=== PATIENT | male | born 1995 | race Hispanic/Latino ===

== ENCOUNTER 2017-12-08 20:17 | Emergency (ER) | payer OTHER, SELFPAY ==
[2017-12-08 21:48] LABS: #Basophils 0.1 thou/uL (0.0-0.2); #Eosinphils 0.2 thou/uL (0.0-0.7); #Lymphocytes 3.8 thou/uL (1.20-3.40); #Neutrophils 5.3 thou/uL (1.40-6.50); %Basophils 0.9 % (0.0-1.0); %Eosinophils 2.3 % (0.0-10.0); %Lymphocytes 36.7 % (21.0-51.0); %Monocytes 9.4 % (0.0-10.0); %Neutrophils 50.8 % (42.0-75.0); Hemoglobin 18.2 g/dL (14.0-18.0); Mean Corpuscular HGB CONC 35.5 g/dL (32.0-36.0); Mean Corpuscular Hemoglobin 31.1 pg (27.0-31.0); Mean Corpuscular Volume 87.6 fl (80.0-94.0); Platelet Count 277 thou/uL (130-400); RBC Distribution Width 12.1 % (11.5-14.5); Red Blood Cell (RBC) Count 5.83 mill/uL (4.70-6.10); White Blood Cell (WBC) Count 10.4 thou/uL (4.8-10.8)
[2017-12-08 21:56] LABS: Bilirubin Small (Negative); Blood, Urine Negative (Negative); Clarity CLEAR (Clear); Glucose, Urine (Dipstick) Negative (Negative); Leukocyte Negative (Negative); Nitrite Negative (Negative); Protein, Urine (Dipstick) 30 mg/dL (Neg-Trace); Specific Gravity, Urine 1.029 (1.002-1.036); pH, Urine 6.5 (5.0-9.0)
[2017-12-08 21:57] LABS: Bacteria/HPF None Seen HPF (None Seen); Hyaline Casts/LPF 0-3 HYALINE CAST LPF (0-3 Hyaline); Pathc Cast-AUWi Flag 0.29 (0-2.49); RBC/HPF 0-3 HPF (0-3); Squamous Epithelial 0-3 HPF (0-3); WBC/HPF 0-3 HPF (0-3)
--- NOTE | 2017-12-08 22:03 | RAD ---
TWO VIEWS CHEST: 12/08/2017 PROVIDED CLINICAL HISTORY: Dyspnea. FINDINGS: The cardiac and mediastinal silhouette are within normal limits. The lungs appear clear. There is n o pleural fluid or pneumothorax apparent. IMPRESSION: No evidence for an acute cardiopulmonary process. POS: JG
[2017-12-08 22:04] LABS: Amphetamine Detected (NotDetected); Barbiturates Screen Not Detected (NotDetected); Benzodiazepine Screen Not Detected (NotDetected); Cocaine Metabolite Screen Detected (NotDetected); Medtox Control Line Valid? VALID (VALID); Medtox Reader # READER 4; Methadone Not Detected (NotDetected); Methamphetamine Detected (NotDetected); Opiate Screen Not Detected (NotDetected); Oxycodone Screen Not Detected (NotDetected); Phencyclidine (PCP) Not Detected (NotDetected); THC/Cannabinoid Screen Detected (NotDetected); Tricyclic Screen Not Detected (NotDetected)
[2017-12-08 22:10] LABS: Acetaminophen Less than 6.0 mcg/mL (10.0-30.0); Alcohol Less than 10 mg/dL (Less than 10); Salicylate Less than 8.0 mg/dL (15.0-30.0)
[2017-12-08 22:12] LABS: ALT (SGPT) 120 U/L (8-55); AST (SGOT) 92 U/L (5-34); Alkaline Phosphatase 101 U/L (40-150); Anion Gap 23 mmol/L (10-20); BUN (Urea Nitrogen) 27 mg/dL (8.9-20.6); Bilirubin, Total 1.5 mg/dL (0.2-1.2); CK (CPK) 86 U/L (30-200); Calc. Creatinine Clearance 0 mL/min (70-130); Calcium 10.4 mg/dL (7.8-10.44); Carbon Dioxide 14 mmol/L (22-29); Chloride 104 mmol/L (98-107); Estimated GFR-MDRD Greater than 90; Globulin 3.6 g/dL (2.4-3.5); Glucose 87 mg/dL (70-105); Lipase 19 U/L (8-78); Potassium 3.7 mmol/L (3.5-5.1); Protein, Total 8.6 g/dL (6.0-8.3); Sodium 137 mmol/L (136-145)
[2017-12-08 22:14] LABS: CKMB 0.3 ng/mL (0-6.6); Troponin I Less than 0.010 ng/mL (< 0.028)
== END 2017-12-08 23:37 | disposition home or self-care (01) ==
LOC: ERS 20:17
DX: R07.89 Other chest pain (principal); F32.9 Major depressive disorder, single episode, unspecified; F41.9 Anxiety disorder, unspecified; F17.210 Nicotine dependence, cigarettes, uncomplicated
CPT/HCPCS: 71046; 80053; 80306; 80307; 81003; 81015; 82550; 82553; 83690; 84484; 85025; 93005; 94760; 96360

== ENCOUNTER 2018-07-03 04:57 | Emergency (ER) | payer OTHER, SELFPAY ==
[2018-07-03] MEDS ORDERED: Lorazepam 2 MG/ML VIAL ONE (05:04)
[2018-07-03 05:28] LABS: #Basophils 0.1 thou/uL (0.0-0.2); #Eosinphils 0.2 thou/uL (0.0-0.7); #Lymphocytes 4.2 thou/uL (1.20-3.40); #Monocytes 0.9 thou/uL (0.11-0.59); #Neutrophils 3.5 thou/uL (1.40-6.50); %Basophils 1.3 % (0.0-1.0); %Eosinophils 2.6 % (0.0-10.0); %Lymphocytes 47.4 % (21.0-51.0); %Monocytes 9.8 % (0.0-10.0); %Neutrophils 38.9 % (42.0-75.0); Hemoglobin 15.1 g/dL (14.0-18.0); Mean Corpuscular HGB CONC 34.1 g/dL (32.0-36.0); Mean Corpuscular Hemoglobin 29.7 pg (27.0-31.0); Mean Corpuscular Volume 87.1 fL (78.0-98.0); Mean Platelet Volume 7.7 fL (7.4-10.4); Platelet Count 272 thou/uL (130-400); RBC Distribution Width 11.6 % (11.5-14.5); Red Blood Cell (RBC) Count 5.08 mill/uL (4.70-6.10)
[2018-07-03 05:48] LABS: ALT (SGPT) 21 U/L (8-55); AST (SGOT) 18 U/L (5-34); Acetaminophen Less than 6.0 mcg/mL (10.0-30.0); Albumin 4.3 g/dL (3.5-5.0); Alcohol Less than 10 mg/dL (Less than 10); Alkaline Phosphatase 88 U/L (40-150); Anion Gap 18 mmol/L (10-20); BUN (Urea Nitrogen) 14 mg/dL (8.9-20.6); Bilirubin, Total 0.4 mg/dL (0.2-1.2); CK (CPK) 68 U/L (30-200); Calc. Creatinine Clearance 0 mL/min (70-130); Calcium 9.1 mg/dL (7.8-10.44); Carbon Dioxide 20 mmol/L (22-29); Chloride 104 mmol/L (98-107); Estimated GFR-MDRD Greater than 90; Glucose 107 mg/dL (70-105); Protein, Total 7.3 g/dL (6.0-8.3); Salicylate Less than 8.0 mg/dL (15.0-30.0); Sodium 139 mmol/L (136-145)
[2018-07-03 05:51] LABS: Potassium 2.8 mmol/L (3.5-5.1)
[2018-07-03] MEDS ORDERED: Potassium Chloride 20 MEQ TAB ONE (05:56)
--- NOTE | 2018-07-03 07:57 | RAD ---
RADIOGRAPH CHEST 1 VIEW: HISTORY: 23-year-old male with chest pain and tachycardia. FINDINGS: There are no air space densities, pulmonary edema, pneumothorax, or cardiomegaly. The lateral costop hrenic angles are sharp. IMPRESSION: No acute cardiopulmonary findings. jn [] POS: [id number]
--- NOTE | 2018-07-06 14:16 | EKG ---
Test Reason : REPEAT Blood Pressure : / mmHG Vent. Rate : 132 BPM Atrial Rate : 132 BPM P-R Int : 144 ms QRS Dur : 112 ms QT Int : 310 ms P-R-T Axes : 039 055 029 degrees QTc Int : 459 ms Sinus tachycardia Otherwise normal ECG Confirmed by HEENA RUSS, ENEDINA (12), non linear editor MADI SOLOMON ([id number]) on 07/06/2018 2:15:43 PM Referred By: Confirmed By:ENEDINA NAIK MD
--- NOTE | 2018-07-06 14:16 | EKG ---
Test Reason : Blood Pressure : / mmHG Vent. Rate : 152 BPM Atrial Rate : 152 BPM P-R Int : 000 ms QRS Dur : 114 ms QT Int : 308 ms P-R-T Axes : 000 090 026 degrees QTc Int : 489 ms Sinus tachycardia with short [place] Rightward axis T wave abnormality, consider inferior ischemia Abnormal ECG Confirmed by HEENA RUSS, ENEDINA (12), magazine editor MADI SOLOMON ([id number]) on 07/06/2018 2:15:42 PM Referred By: Confirmed By:ENDEINA NAIK MD
== END 2018-07-03 06:30 | disposition home or self-care (01) ==
LOC: ERS 04:57
DX: F41.1 Generalized anxiety disorder (principal); E86.0 Dehydration; E87.6 Hypokalemia; F32.9 Major depressive disorder, single episode, unspecified; F17.210 Nicotine dependence, cigarettes, uncomplicated
CPT/HCPCS: 36415; 71045; 80053; 80307; 82550; 83690; 84443; 84484; 85025; 85379; 93005; 96361; 96374; J2060

== ENCOUNTER 2018-07-16 16:50 | Emergency (ER) | payer OTHER | END 2018-07-16 17:26 | disposition home or self-care (01) | LOC: ERS 16:50 | DX: T63.481A Toxic effect of venom of other arthropod, accidental (unintentional), initial encounter (principal); L25.8 Unspecified contact dermatitis due to other agents; F17.210 Nicotine dependence, cigarettes, uncomplicated; Z79.899 Other long term (current) drug therapy | CPT/HCPCS: 99282 ==

== ENCOUNTER 2019-04-14 19:02 | Emergency (ER) | payer OTHER ==
[2019-04-14] MEDS ORDERED: Labetalol HCl 100 MG/20 ML VIAL ONE (19:25)
[2019-04-14 19:41] LABS: #Basophils 0.1 thou/uL (0.0-0.2); #Eosinphils 0.2 thou/uL (0.0-0.7); #Lymphocytes 3.7 thou/uL (1.20-3.40); #Monocytes 0.9 thou/uL (0.11-0.59); #Neutrophils 6.4 thou/uL (1.40-6.50); %Basophils 0.9 % (0.0-1.0); %Eosinophils 1.5 % (0.0-10.0); %Lymphocytes 32.7 % (21.0-51.0); %Monocytes 7.6 % (0.0-10.0); %Neutrophils 57.4 % (42.0-75.0); Hemoglobin 17.2 g/dL (14.0-18.0); Mean Corpuscular HGB CONC 36.1 g/dL (32.0-36.0); Mean Corpuscular Hemoglobin 31.4 pg (27.0-31.0); Mean Corpuscular Volume 86.8 fL (78.0-98.0); Mean Platelet Volume 7.4 fL (7.4-10.4); Platelet Count 266 thou/uL (130-400); White Blood Cell (WBC) Count 11.2 thou/uL (4.8-10.8)
--- NOTE | 2019-04-14 19:46 | RAD ---
Exam: Chest one view HISTORY:Chest pain Comparison: 07/03/2018 FINDINGS: Cardiac silhouette: Normal Aorta: Unremarkable Pulmonary vessels: Normal Costophrenic angles: Clear LUNGS: No masses or consolidation. Pneumothorax: None Osseous abnormalities: None IMPRESSION: No acute cardiopulmonary process.
[2019-04-14 19:52] LABS: Acetaminophen Less than 6.0 mcg/mL (10.0-30.0); Alcohol Less than 10 mg/dL (Less than 10); Salicylate Less than 8.0 mg/dL (15.0-30.0)
[2019-04-14 19:59] LABS: ALT (SGPT) 44 U/L (8-55); AST (SGOT) 35 U/L (5-34); Albumin 4.9 g/dL (3.5-5.0); Alkaline Phosphatase 81 U/L (40-110); Anion Gap 16 mmol/L (10-20); BUN (Urea Nitrogen) 17 mg/dL (8.9-20.6); Bilirubin, Total 0.4 mg/dL (0.2-1.2); Calc. Creatinine Clearance 0 mL/min (70-130); Calcium 10.4 mg/dL (7.8-10.44); Carbon Dioxide 23 mmol/L (22-29); Chloride 103 mmol/L (98-107); Estimated GFR-MDRD Greater than 90; Globulin 3.5 g/dL (2.4-3.5); Glucose 91 mg/dL (70-105); Lipase 17 U/L (8-78); Potassium 3.4 mmol/L (3.5-5.1); Protein, Total 8.4 g/dL (6.0-8.3); Sodium 139 mmol/L (136-145)
[2019-04-14 20:25] LABS: Bacteria/HPF None Seen HPF (None Seen); Bilirubin Negative (Negative); Blood, Urine Negative (Negative); Clarity Clear (Clear); Glucose, Urine (Dipstick) Normal (Negative); Leukocyte Negative Leu/uL (Negative); Nitrite Negative (Negative); Protein, Urine (Dipstick) 50 mg/dL (Neg-Trace); RBC/HPF 0-3 HPF (0-3); Squamous Epithelial None Seen HPF (0-3); WBC/HPF 0-3 HPF (0-3)
[2019-04-14 20:27] LABS: Amphetamine Not Detected (NotDetected); Barbiturates Screen Not Detected (NotDetected); Benzodiazepine Screen Detected (NotDetected); Cocaine Metabolite Screen Not Detected (NotDetected); Medtox Control Line Valid? VALID (VALID); Medtox Reader # READER 4; Methadone Not Detected (NotDetected); Methamphetamine Not Detected (NotDetected); Opiate Screen Not Detected (NotDetected); Oxycodone Screen Not Detected (NotDetected); Phencyclidine (PCP) Not Detected (NotDetected); THC/Cannabinoid Screen Detected (NotDetected); Tricyclic Screen Not Detected (NotDetected)
== END 2019-04-14 21:02 | disposition home or self-care (01) ==
LOC: ERS 19:02
DX: I10 Essential (primary) hypertension (principal); F41.9 Anxiety disorder, unspecified; R53.1 Weakness; R20.2 Paresthesia of skin; F32.9 Major depressive disorder, single episode, unspecified
CPT/HCPCS: 71045; 80053; 80306; 80307; 81003; 81015; 83690; 84484; 85025; 93005; 96374

== ENCOUNTER 2019-07-26 11:40 | Emergency (ER) | payer OTHER, SELFPAY ==
[2019-07-26 12:16] LABS: Bilirubin Negative (Negative); Blood, Urine 3+ (Negative); Clarity Turbid (Clear); Glucose, Urine (Dipstick) Normal (Negative); Leukocyte 500 Leu/uL (Negative); Nitrite Negative (Negative); Protein, Urine (Dipstick) 30 mg/dL (Neg-Trace); RBC/HPF Greater than 50 HPF (0-3); Squamous Epithelial None Seen HPF (0-3); Urobilinogen Normal mg/dL (Less than 2); WBC/HPF Greater than 50 HPF (0-3)
[2019-07-26 12:18] LABS: Bacteria/HPF 1+ HPF (None Seen)
[2019-07-26] MEDS ORDERED: cefTRIAXone\\ROCEPHIN 250 MG VIAL ONE (13:00)
[2019-07-26] MEDS ORDERED: Azithromycin 250 MG TAB ONE (13:00)
[2019-07-28 21:37] LABS: Chlam.trachomatis by PCR,Urine Not Detected (NotDetected)
== END 2019-07-26 13:13 | disposition home or self-care (01) ==
LOC: ERS 11:40
DX: N39.0 Urinary tract infection, site not specified (principal); R36.9 Urethral discharge, unspecified; I10 Essential (primary) hypertension; F41.9 Anxiety disorder, unspecified; F32.9 Major depressive disorder, single episode, unspecified; Z79.899 Other long term (current) drug therapy
CPT/HCPCS: 81003; 81015; 87491; 87591; 99283; J0696

== ENCOUNTER 2019-08-24 14:21 | Emergency (ER) | payer SELFPAY | END 2019-08-24 16:04 | disposition home or self-care (01) | LOC: ERS 14:21 | DX: J02.8 Acute pharyngitis due to other specified organisms (principal); B97.89 Other viral agents as the cause of diseases classified elsewhere; I10 Essential (primary) hypertension; F41.9 Anxiety disorder, unspecified; F32.9 Major depressive disorder, single episode, unspecified | CPT/HCPCS: 87081; 87430; 99283 ==

== ENCOUNTER 2019-12-31 17:08 | Emergency (ER) | payer OTHER, SELFPAY ==
[2020-01-01 12:25] LABS: SARS-CoV-2 MS2 Positive; SARS-CoV-2 N Gene Negative; SARS-CoV-2 S Gene Negative; SARS-CoV-2 orf1ab Negative
== END 2019-12-31 18:00 | disposition home or self-care (01) ==
LOC: ERS 17:08
DX: Z20.828 Contact with and (suspected) exposure to other viral communicable diseases (principal); I10 Essential (primary) hypertension; F41.9 Anxiety disorder, unspecified
CPT/HCPCS: 87635; 99283; U0003

== ENCOUNTER 2020-10-10 17:05 | Emergency (ER) | payer SELFPAY | END 2020-10-10 18:35 | disposition home or self-care (01) | LOC: ERS 17:05 | DX: M54.5 Low back pain (principal); I10 Essential (primary) hypertension | CPT/HCPCS: 99283 ==

== ENCOUNTER 2024-05-20 15:30 | Emergency (ER) | payer SELFPAY | END 2024-05-20 18:29 | disposition home or self-care (01) | LOC: ERS 15:30 | DX: S20.212A Contusion of left front wall of thorax, initial encounter (principal); I10 Essential (primary) hypertension; F17.210 Nicotine dependence, cigarettes, uncomplicated; W01.10XA Fall on same level from slipping, tripping and stumbling with subsequent striking against unspecified object, initial encounter | CPT/HCPCS: 71045; 93005 ==